=== PATIENT | female | born 1930 | race Caucasian/White ===

== ENCOUNTER 2019-05-20 13:50 | Inpatient (IN) | payer OTHER ==
[~2019-05-20] VITALS: Ht 152.4 cm; Wt 59.0 kg
[~2019-05-20 13:50] MED LIST: CLONAZEPAM0.5 MG PO; PERCOCET 5-3251 EACH PO
[2019-05-20] MEDS ORDERED: RISPERDAL1 MG PO (14:23)
[2019-05-20] MEDS ORDERED: RESTORIL30 M1 PO (14:23)
== END 2019-05-26 16:44 | disposition home or self-care (01) | DRG 389 ==
LOC: ER → SEC-K 17:25 → MEDI 17:25 → MEDJ 19:14 → MEDI 05-21 10:12
PROVIDERS: ADMIT Internal Medicine
PROC: BW21Y0Z Computerized Tomography (CT Scan) of Abdomen and Pelvis using Other Contrast, Unenhanced and Enhanced (ICD-10-PCS; principal; 2019-05-20)
PROC: 0T9B70Z Drainage of Bladder with Drainage Device, Via Natural or Artificial Opening (ICD-10-PCS; 2019-05-20)
PROC: 0DH67UZ Insertion of Feeding Device into Stomach, Via Natural or Artificial Opening (ICD-10-PCS; 2019-05-21)
PROC: 3E0G76Z Introduction of Nutritional Substance into Upper GI, Via Natural or Artificial Opening (ICD-10-PCS; 2019-05-21)
PROC: 02HV33Z Insertion of Infusion Device into Superior Vena Cava, Percutaneous Approach (ICD-10-PCS; 2019-05-22)
PROC: 3E0F7GC Introduction of Other Therapeutic Substance into Respiratory Tract, Via Natural or Artificial Opening (ICD-10-PCS; 2019-05-23)
DX: K56.690 Other partial intestinal obstruction (principal); K57.32 Diverticulitis of large intestine without perforation or abscess without bleeding; E44.0 Moderate protein-calorie malnutrition; K44.9 Diaphragmatic hernia without obstruction or gangrene; K21.9 Gastro-esophageal reflux disease without esophagitis; R31.0 Gross hematuria

== ENCOUNTER → 2020-06-15 15:00 | Outpatient (CLI) | payer OTHER ==
[~2020-06-15 15:00] MED LIST changes: +RESTORIL30 M1 PO; +RISPERDAL1 MG PO
== END | disposition home or self-care (01) ==
LOC: PPH VACUNA 15:00
PROVIDERS: ATTEND Emergency Medicine Pediatric Emergency Medicine
DX: Z23 Encounter for immunization (principal)

== ENCOUNTER 2020-07-06 10:30 | Outpatient (CLI) | payer OTHER | END 2020-07-06 10:35 | disposition home or self-care (01) | LOC: PPH VACUNA 10:30 | PROVIDERS: ATTEND Emergency Medicine Pediatric Emergency Medicine | DX: Z23 Encounter for immunization (principal) ==

== ENCOUNTER → 2020-12-10 10:00 | Outpatient (CLI) | payer OTHER | END | disposition home or self-care (01) | LOC: RAD 10:00 | PROVIDERS: ATTEND Ophthalmology | DX: I10 Essential (primary) hypertension (principal); Z01.811 Encounter for preprocedural respiratory examination ==

== ENCOUNTER → 2021-05-04 | Emergency (ER) | payer OTHER ==
[~2021-05-04] VITALS: Ht 160 cm; Wt 72.6 kg
[~2021-05-04] MED LIST changes: +ADVIL200 M1
== END | disposition left against medical advice (07) ==
LOC: ER 04:00
DX: R41.82 Altered mental status, unspecified (principal); R11.2 Nausea with vomiting, unspecified; R19.7 Diarrhea, unspecified; R53.1 Weakness